=== PATIENT | female | born 1985 | race Caucasian/White ===

== ENCOUNTER → 2018-07-07 | Outpatient (CLI) | payer OTHER ==
[2018-07-07 09:15] LABS: GLUCOSE FASTING 104 mg/dL (70-110)
[2018-07-07 09:32] LABS: BASOPHIL % 0.4 % (0-2); PLATELET COUNT 336 x10^3mcL (130-400); RED CELL DISTRIBUTION WIDTH 13.1 % (11.5-14.5)
[2018-07-08 11:37] LABS: RAPID PLASMA REAGIN Non Reactive (Non Reactive)
== END | disposition home or self-care (01) ==
LOC: LB 07:59
DX: Z34.81 Encounter for supervision of other normal pregnancy, first trimester (principal); Z86.32 Personal history of gestational diabetes

== ENCOUNTER → 2018-07-09 | Outpatient (CLI) | payer OTHER | END | disposition home or self-care (01) | LOC: LB 07:51 | DX: Z34.81 Encounter for supervision of other normal pregnancy, first trimester (principal) ==

== ENCOUNTER → 2018-07-12 | Outpatient (CLI) | payer OTHER | END | disposition home or self-care (01) | LOC: US 09:39 | PROC: BY49ZZZ Ultrasonography of First Trimester, Single Fetus (ICD-10-PCS; principal; 2018-07-12) | DX: Z34.81 Encounter for supervision of other normal pregnancy, first trimester (principal) ==

== ENCOUNTER → 2018-07-14 | Outpatient (CLI) | payer OTHER | END | disposition home or self-care (01) | LOC: US 08:45 | PROC: BY49ZZZ Ultrasonography of First Trimester, Single Fetus (ICD-10-PCS; principal; 2018-07-14) | DX: Z34.81 Encounter for supervision of other normal pregnancy, first trimester (principal) ==

== ENCOUNTER → 2018-07-19 | Outpatient (CLI) | payer OTHER | END | disposition home or self-care (01) | LOC: LB 08:13 | DX: Z34.81 Encounter for supervision of other normal pregnancy, first trimester (principal) ==

== ENCOUNTER → 2018-08-05 | Outpatient (CLI) | payer OTHER | END | disposition home or self-care (01) | LOC: US 08-04 10:30 | PROC: BW4GZZZ Ultrasonography of Pelvic Region (ICD-10-PCS; principal; 2018-08-05) | DX: O73.1 Retained portions of placenta and membranes, without hemorrhage (principal) ==

== ENCOUNTER → 2018-08-11 | Outpatient (CLI) | payer OTHER | END | disposition home or self-care (01) | LOC: LB 13:30 | DX: O02.1 Missed abortion (principal) ==

== ENCOUNTER → 2018-09-06 | Outpatient (CLI) | payer OTHER | END | disposition home or self-care (01) | LOC: LB 17:11 | DX: N76.0 Acute vaginitis (principal); N96 Recurrent pregnancy loss | CPT/HCPCS: 81241; 85300 ==

== ENCOUNTER → 2018-11-03 | Outpatient (CLI) | payer OTHER ==
[2018-11-03 12:57] LABS: BASOPHIL % 0.5 % (0-2); PLATELET COUNT 328 x10^3mcL (130-400); RED CELL DISTRIBUTION WIDTH 14.5 % (11.5-14.5)
[2018-11-04 08:28] LABS: RAPID PLASMA REAGIN Non Reactive (Non Reactive)
== END | disposition home or self-care (01) ==
LOC: LB 12:05
DX: Z34.81 Encounter for supervision of other normal pregnancy, first trimester (principal)

== ENCOUNTER → 2018-11-08 | Outpatient (CLI) | payer OTHER | END | disposition home or self-care (01) | LOC: US 16:43 | PROC: BY49ZZZ Ultrasonography of First Trimester, Single Fetus (ICD-10-PCS; principal; 2018-11-08) | DX: Z34.81 Encounter for supervision of other normal pregnancy, first trimester (principal) ==

== ENCOUNTER → 2018-11-10 | Outpatient (CLI) | payer OTHER | END | disposition home or self-care (01) | LOC: LB 15:39 | DX: O20.0 Threatened abortion (principal) ==